=== PATIENT | male | born 2000 | race African-American/Black ===

== ENCOUNTER 2022-12-25 22:30 | Outpatient (CLI) | payer OTHER | END 2022-12-25 22:31 | disposition critical access hospital (66) | LOC: EMS 22:30 | DX: R06.00 Dyspnea, unspecified (principal); L50.9 Urticaria, unspecified | CPT/HCPCS: A0425; A0429 ==

== ENCOUNTER 2022-12-25 22:48 | Emergency (ER) | payer OTHER ==
[2022-12-25] MEDS ORDERED: DEXAMETHASONE 10 MG/ML VIAL PO STA (23:21)
[2022-12-25] MEDS ORDERED: CHERRY SYRUP 10 ML UDC PO ONE (23:21)
--- NOTE | 2022-12-25 23:24 | ED Physician Documentation ---
History of Present Illness - Stated complaint Stated Complaint: ALLERGIC REACTION - Chief complaint Chief Complaint: Allergic Rx - History obtained from History obtained from: Patient - Additonal information Additional information: Patient is a 22-year-old male with a history of seasonal allergies presenting for evaluation of an allergic reaction. This evening he was driving in his car around 9:20 PM when he started feeling itchy all over his body and noticed that he had hives. He was headed to a friend's house. He also developed tightness in his throat and his chest. His friend saw that he was covered in hives and had an EpiPen available and administered an EpiPen around 2209. He reports feeling significantly better thereafter. He denies any known allergies. He reports trying a new vape flavor today.He denies any other Known new exposures. He denies feeling tongue or lip swelling and states that his speech has been normal. Review of Systems Constitutional: denies: Fever Cardiac: denies: Chest pain / pressure GI: denies: Abdominal Pain, Vomiting Skin: reports: Rash PD PAST MEDICAL HISTORY - Past Medical History Past Medical History: No Cardiovascular: None Respiratory: None Neuro: None Endocrine/Autoimmune: None GI: None : None HEENT: None Psych: None Musculoskeletal: None Derm: None - Past Surgical History Past Surgical History: No - Present Medications Home Medications: Ambulatory Orders Medication Instructions Recorded Confirmed EPINEPHrine [Epinephrine] 0.3 mg IJ ONCE PRN #2 each 12/26/22 - Allergies Allergies/Adverse Reactions: Allergies Allergy/AdvReac Type Severity Reaction Status Date / Time No Known Drug Allergies Allergy Verified 12/25/22 22:54 - Social History Does the pt smoke?: No Smoking Status: Former smoker Does the pt drink ETOH?: Yes Does the pt have substance abuse?: No - POLST Patient has POLST: No PD ED PE NORMAL - General General: Alert and oriented X 3, No acute distress, Well developed/nourished - HEENT HEENT: Atraumatic, Moist mucous membranes, Pharynx benign (No oral swelling) - Neck Neck: Supple, no meningeal sign - Cardiac Cardiac: RRR - Respiratory Respiratory: No respiratory distress, Clear bilaterally - Abdomen Abdomen: Soft, Non tender, Non distended - Derm Derm: Other (hives to right upper arm) - Extremities Extremities: No edema - Neuro Neuro: Normal speech Results - Vitals Vitals: Vital Signs - 24 hr 12/25/22 12/26/22 22:55 01:00 Temperature 36.9 C 36.8 C Heart Rate 110 H 80 Respiratory 14 16 Rate Blood Pressure 165/96 H 117/80 O2 Saturation 100 100 Oxygen O2 Source Room air PD Medical Decision Making - ED course Complexity details: re-evaluated patient, d/w patient ED course: Patient with allergic reaction that required epinephrine prior to ER presentation. On arrival he is well-appearing with no signs of respiratory di stress or airway compromise. No signs of anaphylaxis here. His vital signs appear stable. He does continue to have some hives. He was given a dose of oral Decadron. He was monitored for several hours without rebound and did not require further doses of epinephrine. It is unclear what patient's allergic reaction is due to.I did sales counselor the patient regarding his vaping use and recommended that he avoid vaping as it could be related to the new flavor he had tried today.I did prescribe the patient EpiPen for home and counseled on need for close follow-up with PCP. Patient is also counseled on strict return precautions. Departure - Departure Disposition: 01 Home, Self Care Clinical Impression: Allergic reaction Condition: Stable Instructions: ED Allergic Reaction General Other Prescriptions: EPINEPHrine [Epinephrine] 0.3 mg IJ ONCE PRN #2 each PRN Reason: Allergy Symptoms Comments: You were seen after an allergic reaction tonight. Is unclear what caused your reaction. You did receive a dose of a long-acting steroid which should help for the next 72 hours. You can continue to use Benadryl as needed for hives or itching. I have also sent a prescription for an EpiPen to [facility] in [place].If anytime you feel tightness in your chest, throat or have any difficulties with breathing please call 911. I would recommend close follow-up with your primary care provider to help determine what may have caused her reaction this evening. Discharge Date/Time: 12/26/22 01:00
[2022-12-26 01:08] VITALS: BP 117/80
== END 2022-12-26 01:00 | disposition home or self-care (01) ==
LOC: ED 22:48
DX: T78.40XA Allergy, unspecified, initial encounter (principal); Z87.891 Personal history of nicotine dependence
CPT/HCPCS: 99283; A9270

== ENCOUNTER 2022-12-26 22:54 | Emergency (ER) | payer OTHER ==
[2022-12-26] MEDS ORDERED: predniSONE 20 MG TABLET PO STA (23:32)
[2022-12-26] MEDS ORDERED: diphenhydrAMINE 25 MG CAPSULE PO STA (23:32)
[2022-12-26] MEDS ORDERED: FAMOTIDINE 20 MG TABLET PO STA (23:33)
[2022-12-27 00:48] VITALS: BP 140/87
--- NOTE | 2022-12-27 00:49 | ED Physician Documentation ---
PD HPI SKIN - Stated complaint Stated Complaint: SOA - Chief complaint Chief Complaint: Wound - History obtained from History obtained from: Patient - Additional information Additional information: Patient is a 22-year-old male presenting for evaluation of Hives on his torso, face and arms that started approximately 1 hour ago with associated itching. Patient had a similar reaction last night and presented to the emergency department. Yesterday he had received IM epi from a friend due to feeling tightness in his throat. While in the emergency department he received Decadron and had improvement in his symptoms without requiring additional epi. He was given an EpiPen prescription which she has not yet filled.He states he was at a friend's house when his hives started. He denies chest pain, throat tightening or shortness of breath. He again denies any new known exposures and states he has not eaten any different foods today and has also not vaped as yesterday we had thought perhaps it could be related to a new flavor of vape. Review of Systems Constitutional: denies: Fever Cardiac: denies: Chest pain / pressure Respiratory: denies: Dyspnea GI: denies: Abdominal Pain Skin: reports: Rash PD PAST MEDICAL HISTORY - Past Medical History Past Medical History: No Cardiovascular: None Respiratory: None Neuro: None Endocrine/Autoimmune: None GI: None : None HEENT: None Psych: None Musculoskeletal: None Derm: None - Past Surgical History Past Surgical History: No - Present Medications Home Medications: Ambulatory Orders Medication Instructions Recorded Confirmed EPINEPHrine [Epinephrine] 0.3 mg IJ ONCE PRN #2 each 12/26/22 12/26/22 Famotidine [Pepcid] 40 mg PO DAILY #4 tablet 12/27/22 diphenhydrAMINE [Benadryl] 25 - 50 mg PO Q6H PRN #30 cap 12/27/22 predniSONE [Deltasone] 60 mg PO DAILY 4 Days #12 tablet 12/27/22 - Allergies Allergies/Adverse Reactions: Allergies Allergy/AdvReac Type Severity Reaction Status Date / Time No Known Drug Allergies Allergy Verified 12/26/22 23:10 - Social History Does the pt smoke?: No Smoking Status: Former smoker Does the pt drink ETOH?: Yes Does the pt have substance abuse?: No - Immunizations Immunizations are current?: Yes - POLST Patient has POLST: No PD ED PE NORMAL - General General: Alert and oriented X 3, No acute distress, Well developed/nourished - HEENT HEENT: Atraumatic, Pharynx benign (No oral swelling, normal speech) - Neck Neck: Supple, no meningeal sign - Cardiac Cardiac: Other (Tachycardic, regular rhythm) - Respiratory Respiratory: No respiratory distress, Clear bilaterally - Abdomen Abdomen: Soft, Non tender - Derm Derm: Other (Hives to bilateral arms, chest, face and back) - Extremities Extremities: No edema - Neuro Neuro: Normal speech Results - Vitals Vitals: Vital Signs - 24 hr 12/26/22 12/26/22 12/27/22 23:05 23:27 00:16 Temperature 37.2 C Heart Rate 130 H 127 H 102 H Respiratory 24 24 14 Rate Blood Pressure 143/87 H 138/101 H 143/87 H O2 Saturation 99 100 100 12/27/22 00:46 Temperature Heart Rate 102 H Respiratory 16 Rate Blood Pressure 140/87 H O2 Saturation 100 Oxygen O2 Source Room air PD Medical Decision Making - ED course Complexity details: re-evaluated patient ED course: Patient presenting for evaluation of hives. Had a similar reaction yesterday. No signs of anaphylaxis requiring epinephrine. Patient was started on prednisone and additionally given Benadryl and Pepcid with improvement in his symptoms. Again there is no clear trigger for this. Patient does report being under a lot of stress. We will continue the patient on prednisone for several more days.Patient counseled on need for close follow-up with PCP as well as advised on strict return precautions. Departure - Departure Disposition: 01 Home, Self Care Clinical Impression: Urticaria, Allergic reaction Condition: Stable Instructions: ED Urticaria Prescriptions: diphenhydrAMINE [Benadryl] 25 - 50 mg PO Q6H PRN #30 cap PRN Reason: Itching predniSONE [Deltasone] 60 mg PO DAILY 4 Days #12 tablet Famotidine [Pepcid] 40 mg PO DAILY #4 tablet Comments: The cause of your hives and allergic reaction is unclear. We will continue you on prednisone for the next 4 days along with Pepcid which is an antihistamine. I have also sent a prescription for Benadryl to help with the itching. These prescriptions are at [facility] in [place]. Please reach out to your primary care on Wednesday as you likely need some work-up to determine what is causing your hives and allergic reaction. If it anytime you have worsening symptoms please return to the emergency department. Discharge Date/Time: 12/27/22 00:55
== END 2022-12-27 00:55 | disposition home or self-care (01) ==
LOC: ED 22:54
DX: L50.0 Allergic urticaria (principal); Z87.891 Personal history of nicotine dependence
CPT/HCPCS: 99283; A9270; J7512